=== PATIENT | female | born 1935 | race Caucasian/White ===

== ENCOUNTER 2021-11-23 17:37 | Outpatient (CLI) | payer MEDICARE, MEDICAID | END 2021-11-23 23:59 | disposition critical access hospital (66) | LOC: EMS 17:37 | DX: R41.82 Altered mental status, unspecified (principal) | CPT/HCPCS: A0425; A0429 ==

== ENCOUNTER 2021-11-23 17:54 | Emergency (ER) | payer MEDICARE, MEDICAID ==
--- NOTE | 2021-11-23 18:15 | ED Physician Documentation ---
History of Present Illness - Stated complaint Stated Complaint: DECREASED LOC - Chief complaint Chief Complaint: Neuro - History obtained from History obtained from: Patient, EMS - History of Present Illness Pain level max: 0 Pain level now: 0 - Additonal information Additional information: Patient is an 86-year-old female brought in by EMS for decreased mental status for the past several weeks. Patient lives at [facility]. She has a longstanding history of dementia. She did have a head injury 1 to 2 weeks ago. She is on blood thinners. She was not seen at that time. The staff decided they wanted her evaluated tonight. No fevers. No vomiting. Nothing makes it better or worse. Unclear exactly how she is more altered than usual today. Review of Systems Unable to obtain: Dementia PD PAST MEDICAL HISTORY - Past Medical History Past Medical History: Yes Neuro: Dementia - Present Medications Home Medications: Ambulatory Orders Medication Instructions Recorded Confirmed Albuterol Sulfate 1.25 mg IH BID 11/23/21 11/23/21 Albuterol Sulfate [Proair 90 mcg IH BID 11/23/21 11/23/21 Digihaler] Benzonatate [Tessalon] 100 mg PO TID 11/23/21 11/23/21 Budesonide [Pulmicort] 0.5 mg IH BID 11/23/21 11/23/21 Cefpodoxime Proxetil [Vantin] 100 mg PO Q12H #14 tablet 11/23/21 Cholecalciferol (Vitamin D3) 250 mcg PO DAILY 11/23/21 11/23/21 [Vitamin D3] Citalopram [CeleXA] 20 mg PO DAILY 11/23/21 11/23/21 Docusate Sodium 100Mg Capsule 100 mg PO DAILY 11/23/21 11/23/21 [Colace 100Mg Capsule] Formoterol Fumarate 20 mcg IH BID 11/23/21 11/23/21 Furosemide [Lasix] 40 mg PO DAILY 11/23/21 11/23/21 Ipratropium [place] 2.5 ml NS QID 11/23/21 11/23/21 LORazepam [Ativan] 1 mg PO BID PRN 11/23/21 11/23/21 Levothyroxine [Synthroid] 100 mcg PO QDAC 11/23/21 11/23/21 Montelukast Sodium 10 mg PO DAILY 11/23/21 11/23/21 Potassium Bicarbonate/Cit AC 10 meq PO BID 11/23/21 11/23/21 [Effer-K 10 Meq Tablet Eff] Quetiapine Fumarate [Seroquel Xr] 25 mg PO BID 11/23/21 11/23/21 Quetiapine Fumarate [Seroquel] 50 mg PO HS 11/23/21 11/23/21 Rivaroxaban [Xarelto] 15 mg PO DAILY 11/23/21 11/23/21 Zolpidem [Ambien] 5 mg PO HS 11/23/21 11/23/21 diltiaZEM [Cardizem] 60 mg PO ONCE 11/23/21 11/23/21 - Allergies Allergies/Adverse Reactions: Allergies Allergy/AdvReac Type Severity Reaction Status Date / Time bee venom protein (honey bee) Allergy Unknown Verified 11/23/21 18:18 codeine Allergy Unknown Verified 11/23/21 18:18 Sulfa (Sulfonamide Allergy Unknown Verified 11/23/21 18:18 Antibiotics) PD ED PE NORMAL - Vitals Vital signs reviewed: Yes - General General: No acute distress, Well developed/nourished, Other (Alert, talkative.) - HEENT HEENT: PERRL, Moist mucous membranes, Other (Healing ecchymosis to the forehead) - Neck Neck: Supple, no meningeal sign, No bony TTP - Cardiac Cardiac: RRR - Respiratory Respiratory: No respiratory distress, Clear bilaterally - Abdomen Abdomen: Soft, Non tender, Non distended - Back Back: No spinal TTP - Derm Derm: Warm and dry - Extremities Extremities: No deformity, No tenderness to palpate, Normal ROM s pain - Neuro Neuro: Other (Alert, not oriented to person place or time) - Psych Psych: Normal mood, Normal affect Results - Vitals Vitals: Vital Signs - 24 hr 11/23/21 11/23/21 18:01 20:31 Temperature 37.6 C 37.5 C Heart Rate 84 81 Respiratory 24 22 Rate Blood Pressure 133/111 H 135/95 H O2 Saturation 93 96 Oxygen O2 Source Nasal cannula - Labs Labs: Laboratory Tests 11/23/21 11/23/21 11/23/21 18:28 18:28 18:56 WBC 17.1 H RBC 4.19 L Hgb 12.3 Hct 38.3 MCV 91.4 MCH 29.4 MCHC 32.1 RDW 16.5 H Plt Count 209 MPV 11.4 H Neut # (Auto) 15.2 H Lymph # (Auto) 1.0 L Travis # (Auto) 0.7 Eos # (Auto) 0.0 Baso # (Auto) 0.0 Absolute Nucleated RBC 0.00 Nucleated RBC % 0.0 Sodium 139 Potassium 3.8 Chloride 100 L Carbon Dioxide 26 Anion Gap 13.0 BUN 29 H Creatinine 1.0 Estimated GFR (MDRD) 53 L Glucose 126 H Calcium 9.4 Total Bilirubin 0.9 AST 21 ALT 12 Alkaline Phosphatase 86 Total Protein 8.1 Albumin 4.1 Globulin 4.0 Albumin/Globulin Ratio 1.0 Lipase 22 Urine Color YELLOW Urine Clarity CLOUDY Urine pH 6.5 Ur Specific [place] 1.015 Urine Protein NEGATIVE Urine Glucose (UA) NEGATIVE Urine Ketones NEGATIVE Urine Occult Blood TRACE-INTA Urine Nitrite POSITIVE H Urine Bilirubin NEGATIVE Urine Urobilinogen 0.2 (NORMAL) Ur Leukocyte Esterase LARGE H Urine RBC 0-5 Urine WBC >25 H Ur Epithelial Cells FEW Transitional Ur Squamous Epith Cells MOD Squamous H Urine Bacteria Many H Ur Microscopic Review INDICATED Urine Culture Comments NOT INDICATED - Rads (name of study) head CT Radiology: Final report received, EMP read contemporaneously, See rad report c-spine CT Radiology: Final report received, EMP read contemporaneously, See rad report PD MEDICAL DECISION MAKING - ED course Complexity details: reviewed results, re-evaluated patient, considered differential ED course: 86-year-old female without acute findings on head CT or cervical spine CT. She does have a mild leukocytosis and a UTI. Given Rocephin. Will place on antibiotics for home. No fevers. No evidence of sepsis. Patient is talkative in the emergency department. She appears to have severe dementia. POLST form shows DNR/Limited interventions. This document was made in part using voice recognition software. While efforts are made to proofread this document, sound alike and grammatical errors may occur. Departure - Departure Disposition: Home, Self Care Clinical Impression: Dementia Qualifiers: Dementia type: unspecified type Dementia behavioral disturbance: without be havioral disturbance Qualified Code(s): F03.90 - Unspecified dementia without behavioral disturbance UTI (urinary tract infection) Qualifiers: Urinary tract infection type: acute cystitis Hematuria presence: without hematuria Qualified Code(s): N30.00 - Acute cystitis without hematuria Condition: Good Instructions: ED UTI Cystitis Female Follow-Up: Hung Vizcaino MD [Primary Care Provider] - Within 1 week Prescriptions: Cefpodoxime Proxetil [Vantin] 100 mg PO Q12H #14 tablet Comments: The antibiotic was sent to [facility] in [place]. Please follow-up with her doctor for further care. Return if she worsens. She was given a dose of Rocephin tonight. Her CT scans do not show any acute abnormalities. Discharge Date/Time: 11/23/21 20:39
[2021-11-23 18:33] LABS: BASOPHILS % (AUTO) 0.2 %; HCT - HEMATOCRIT 38.3 % (37.0-47.0); HGB - HEMOGLOBIN 12.3 g/dL (12.0-16.0); MEAN CORPUSCULAR HEMOGLOBIN 29.4 pg (27.0-31.0); MEAN CORPUSCULAR HGB CONC 32.1 g/dL (32.0-36.0); MEAN CORPUSCULAR VOLUME 91.4 fL (81.0-99.0); MEAN PLATELET VOLUME 11.4 fL (7.9-10.8); MONOCYTES # (AUTO) 0.7 10^3/uL (0.0-1.0); MONOCYTES % (AUTO) 4.3 %; NEUTROPHILS # (AUTO) 15.2 10^3/uL (1.5-6.6); NEUTROPHILS % (AUTO) 89.1 %; PLT - PLATELET COUNT 209 10^3/uL (130-450); RED BLOOD COUNT 4.19 10^6/uL (4.20-5.40); RED CELL DISTRIBUTION WIDTH 16.5 % (12.0-15.0); WHITE BLOOD COUNT 17.1 x10^3/uL (4.8-10.8)
[2021-11-23 18:47] LABS: ALBUMIN 4.1 g/dL (3.2-5.5); BILIRUBIN,TOTAL 0.9 mg/dL (0.2-1.0); CALCIUM 9.4 mg/dL (8.5-10.3); POTASSIUM 3.8 mmol/L (3.5-5.0); TOTAL PROTEIN 8.1 g/dL (6.7-8.2)
[2021-11-23 19:16] LABS: BILIRUBIN,URINE NEGATIVE (NEGATIVE); GLUCOSE, URINE (UA) NEGATIVE (NEGATIVE); KETONES,URINE (UA) NEGATIVE (NEGATIVE); LEUKOCYTE ESTERASE, URINE LARGE (NEGATIVE); NITRITE,URINE POSITIVE (NEGATIVE); OCCULT BLOOD,URINE TRACE-INTA (NEGATIVE); PH,URINE 6.5 PH (5.0-7.5); PROTEIN,URINE NEGATIVE (NEGATIVE); UROBILINOGEN,URINE 0.2 (NORMAL) E.U./dL (NORMAL)
--- NOTE | 2021-11-23 19:20 | CT Report ---
PROCEDURE: HEAD WO INDICATIONS: fall, head injury 2 weeks ago, dementia TECHNIQUE: Noncontrast 4.5 mm thick angled axial sections acquired from the foramen magnum to the vertex. For r adiation dose reduction, the following was used: automated exposure control, adjustment of mA and/or kV according to patient size. COMPARISON: None. FINDINGS: Image quality: Excellent. CSF spaces: Basal cisterns are patent. No extra-axial fluid collections. Ventricles are normal in size and shape. Brain: No midline shift. No intracranial masses or hemorrhage. [place]-white matter interface is norm al. Subcortical and periventricular hypodensities are consistent with microvascular ischemic disease and age-related cerebral volume loss. Skull and face: Calvarium and visualized facial bones are intact, without suspicious lesions. There is a right cochlear implant. Sinuses: Visualized sinuses and mastoids are clear. IMPRESSION: 1. No acute intracranial abnormality. 2. 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 Reviewed by: Luisito Guillen on 11/23/2021 7:18 PM PDT Approved by: Luisito Guillen on 11/23/2021 7:18 PM PDT Station ID: [id number]
--- NOTE | 2021-11-23 19:22 | CT Report ---
PROCEDURE: CERVICAL SPINE WO INDICATIONS: fall, head injury 2 weeks ago, dementia TECHNIQUE: Noncontrast 3 mm thick sections acquired from the skull base to the T4 level. Sagittal and coronal r eformats were then constructed. For radiation dose reduction, the following was used: automated exp osure control, adjustment of mA and/or kV according to patient size. COMPARISON: None. FINDINGS: Image quality: Excellent. Bones: No fractures or dislocations. Visualized superior ribs are intact. There are multilevel deg enerative changes. Soft tissues: Prevertebral soft tissues are normal in thickness. No paravertebral hematomas. No ap ical pneumothoraces. IMPRESSION: No acute traumatic abnormality of the cervical spine. Reviewed by: Luisito Guillen on 11/23/2021 7:21 PM PDT Approved by: Luisito Guillen on 11/23/2021 7:21 PM PDT Station ID: [id number]
[2021-11-23 19:25] LABS: BACTERIA,URINE Many /HPF (None Seen); CLARITY,URINE CLOUDY (CLEAR); EPITHELIAL CELLS,UR FEW Transitional /HPF (<= Few); RBC,URINE 0-5 /HPF (0-5); SQUAMOUS EPITHELIAL CELL,UR MOD Squamous (<= Few); WBC,URINE >25 /HPF (0-5)
[2021-11-23] MEDS ORDERED: cefTRIAXone 1 GM VIAL IM STA (19:45)
[2021-11-23] MEDS ORDERED: LIDOCAINE 1% 2 ML VIAL MC ONE (19:45)
[2021-11-23 20:32] VITALS: BP 135/95
== END 2021-11-23 20:39 | disposition home or self-care (01) ==
LOC: ED 17:54
DX: N30.00 Acute cystitis without hematuria (principal); F03.90 Unspecified dementia, unspecified severity, without behavioral disturbance, psychotic disturbance, mood disturbance, and anxiety
CPT/HCPCS: 36415; 51701; 80053; 81001; 81003; 83690; 85025; 87086; 99282; 99284

== ENCOUNTER 2021-11-23 20:40 | Outpatient (CLI) | payer MEDICARE, MEDICAID | END 2021-11-23 23:59 | LOC: EMS 20:40 | PROVIDERS: ATTEND Emergency Medicine | DX: F03.90 Unspecified dementia, unspecified severity, without behavioral disturbance, psychotic disturbance, mood disturbance, and anxiety (principal); N39.0 Urinary tract infection, site not specified; Z99.81 Dependence on supplemental oxygen | CPT/HCPCS: A0425; A0428 ==

== ENCOUNTER 2022-02-28 15:24 | Outpatient (CLI) | payer MEDICARE, OTHER, MEDICAID | END 2022-02-28 15:25 | disposition critical access hospital (66) | LOC: EMS 15:24 | DX: Z04.3 Encounter for examination and observation following other accident (principal) | CPT/HCPCS: A0425; A0429 ==

== ENCOUNTER 2022-02-28 18:54 | Outpatient (CLI) | payer MEDICARE, OTHER, MEDICAID | END 2022-02-28 18:55 | disposition home or self-care (01) | LOC: EMS 18:54 | PROVIDERS: ATTEND Emergency Medicine | DX: Z04.3 Encounter for examination and observation following other accident (principal); F03.90 Unspecified dementia, unspecified severity, without behavioral disturbance, psychotic disturbance, mood disturbance, and anxiety | CPT/HCPCS: A0425; A0428 ==

== ENCOUNTER 2022-07-07 07:03 | Outpatient (CLI) | payer MEDICARE, OTHER, MEDICAID | END 2022-07-07 07:04 | disposition E | LOC: EMS 07:03 ==